=== PATIENT | female | born 1980 | race Caucasian/White ===

== ENCOUNTER → 2024-06-19 07:57 | Outpatient (REF) | payer OTHER, SELFPAY | LOC: HWRAD 07:57 | PROVIDERS: ATTENDING PHYSICIAN Physician Assistant Medical | DX: R74.8 Abnormal levels of other serum enzymes (principal) | CPT/HCPCS: 76700 ==

== ENCOUNTER → 2024-08-29 07:37 | Outpatient (REF) | payer OTHER, SELFPAY | LOC: PAVMRI 07:37 | PROVIDERS: ATTENDING PHYSICIAN Physician Assistant Medical | DX: D13.4 Benign neoplasm of liver (principal); K83.1 Obstruction of bile duct | CPT/HCPCS: 74183; A9575 ==

== ENCOUNTER → 2025-03-16 09:17 | Outpatient (REF) | payer OTHER, SELFPAY | LOC: MRI 3T 09:17 | PROVIDERS: ATTENDING PHYSICIAN Internal Medicine; FAMILY PHYSICIAN Physician Assistant Medical | DX: K76.9 Liver disease, unspecified (principal) | CPT/HCPCS: 74183; A9575 ==